=== PATIENT | male | born 1980 | race Two or more races ===

== ENCOUNTER → 2016-06-26 | Outpatient (CLI) | payer OTHER ==
[2016-06-26 09:00] LABS: HEMOGLOBIN 16.5 g/dL (13.7-18.0)
[2016-06-26 09:02] LABS: BLOOD UREA NITROGEN 23 mg/dL (7-18)
[2016-06-26 09:05] LABS: ASPARTATE AMINO TRANSFERASE 22 U/L (15-37)
== END | disposition home or self-care (01) ==
LOC: LAB 08:37
PROVIDERS: ATTEND Internal Medicine
DX: N18.9 Chronic kidney disease, unspecified (principal)
CPT/HCPCS: 36415; 80053; 85025